=== PATIENT | male | born 1995 | race Two or more races ===

== ENCOUNTER 2024-09-05 09:32 | Emergency (ER) | payer OTHER ==
[~2024-09-05] VITALS: Ht 170.2 cm; Wt 95.3 kg
[2024-09-05 10:46] VITALS: BP 109/72; O2SAT 99
[2024-09-05] MEDS ORDERED: KETOROLAC TROMETHAMINE 60 MG VIAL IM ONE (13:15)
[2024-09-05 13:18] LABS: BASO % 0.7 % (0.1-1.2); EOS # 0.18 (0.04-0.54); EOS % 2.6 % (0.7-7.0); LYMPH # 2.96 (1.18-3.74); LYMPH % 43.0 % (19.3-53.1); MEAN PLATELET VOLUME 9.00 fl (9.4-12.4); MONO # 0.86 (0.24-0.82); NEUT # 2.82 (1.56-6.13); NEUT % 41.1 % (34.0-71.1); RED CELL DISTRIBUTION WIDTH 14.4 % (11.6-14.4)
[2024-09-05 13:23] LABS: MONO % 12.5 % (4.7-12.5)
[2024-09-05 13:42] LABS: ERYTHROCYTE SEDIMENTATION RATE 8 mm/hr (0-15)
[2024-09-05 13:54] LABS: ALT/SGPT 42.0 U/L (12-78); AST/SGOT 29.0 U/L (15-37); BILIRUBIN TOTAL 0.57 mg/dL (0.3-1.2); BUN CREA RATIO 12.0 (7.0-25.0); CREATININE SERUM 0.93 mg/dL (0.70-1.30); GFR 95.4; GLOBULINA 3.8 G/DL (2.4-3.5); GLUCOSE FASTING 86.0 mg/dL (65-100); OSMOLALITY SERUM 284.0 MOSM/KG (275-295)
== END 2024-09-05 17:44 | disposition home or self-care (01) ==
LOC: ER 12:35
PROVIDERS: Preventive Medicine Public Health & General Preventive Medicine
DX: R22.0 Localized swelling, mass and lump, head (principal)